=== PATIENT | male | born 1975 | race Caucasian/White ===

== ENCOUNTER → 2017-12-07 | Day surgery (SDC) | payer OTHER ==
[~2017-12-07] VITALS: Ht 177.8 cm; Wt 66.2 kg
[~2017-12-07] MED LIST: ARIP1TAB8 PO; ATROPINE SULFATE 0.1 MG/ML 5ML SYR IV PRN; CITA20TA4 PO; FENTANYL CITRATE INJ 50 MCG/1 ML 2 ML VIAL ONE; LIDOCAINE HCL 2% 2 ML VIAL (20MG/ML) ONE; LORAZEPAM 2 MG/ML 1 ML VIAL IV STA; NURSING VERBAL MED ORDER ONE; ONDANSETRON INJ 2 MG/ML 2 ML VIAL IV PRN; ONDANSETRON INJ 2 MG/ML 2 ML VIAL IV STA; ONDANSETRON INJ 2 MG/ML 2 ML VIAL ONE; PROPOFOL IV EMULSION 10 MG/ML 20 ML VIAL IV ONE; SUCCINYLCHOLINE CHLORIDE 20 MG/ML 10 ML VIAL IV ONE
[2017-12-07 18:15] VITALS: Ht 177.8 cm; Wt 66.2 kg
--- NOTE | 2017-12-07 18:56 | DIAGNOSTIC IMAGING REPORT ---
CHEST ONE VIEW PORTABLE CLINICAL HISTORY: cant swallow dysphagia COMPARISON STUDY: 12/11/2012 FINDINGS: The bones soft tissues and hemidiaphragms are normal. The cardiomediastinal silhouette is normal. The lungs are clear. The pulmonary vasculature is normal. IMPRESSION: Negative chest. The above report was generated using voice recognition software. It may contain grammatical, syntax or spelling errors. Electronically signed by: Louie High M.D. 12/07/2017 6:55 PM Dictated Date/Time: 12/07/2017 6:55 PM
[2017-12-07 19:05] LABS: BASO % 0.5 %; BASO ABS # 0.03 K/uL (0-0.2); EOS % 2.4 %; EOS ABS # 0.14 K/uL (0-0.5); HEMATOCRIT 42.9 % (42-52); HEMOGLOBIN 15.4 g/dL (14.0-18.0); IG# 0.02 K/uL (0.00-0.02); LYMPH % 37.9 %; MEAN CELL VOLUME 86.1 fL (80-100); MEAN CORPUSCULAR HEMOGLOBIN 30.9 pg (25-34); MEAN CORPUSCULAR HGB CONC 35.9 g/dl (32-36); MONO ABS # 0.58 K/uL (0.11-0.59); NEUT % 48.9 %; NEUT ABS # 2.84 K/uL (1.4-6.5); PLATELET COUNT 227 K/uL (130-400); RED CELL DISTRIBUTION WIDTH CV 12.9 % (11.5-14.5); RED CELL DISTRIBUTION WIDTH SD 40.8 fL (36.4-46.3); WHITE BLOOD COUNT 5.81 K/uL (4.8-10.8)
--- NOTE | 2017-12-07 19:10 | EMERGENCY ROOM VISIT NOTE ---
History Report prepared by Lea: Santiago Brantley Under the Supervision of: Dr. Td Cooley D.O. First contact with patient: 18:16 Chief Complaint: CHOKING Stated Complaint: CHOKING, FOOD BOLUS History of Present Illness The patient is a 42 year old male who presents to the Emergency Room with complaints of a piece of food stuck in his mouth that occurred just prior to arrival. The patient states that he was eating a pork chop and a piece got stuck in his throat. He notes that he has had this happen several times before because "I don't chew." He denies any chest pain or shortness of breath. No other exacerbating or remitting factors. Discussed with mom was at bedside and notes that the patient's was eating ribs and was swallowing when something got stuck. Following this he proceeded to try to dry heat. He notes that all of the pain is in the back of his throat and points to his upper neck. He was acting normally prior to this. Source of History: patient Onset: Just prior to arrival Position: throat Quality: other (Food stuck in throat) Timing: constant Associated Symptoms: No chest pain, No SOB Review of Systems See HPI for pertinent positives & negatives. A total of 10 systems reviewed and were otherwise negative. Past Medical & Surgical Medical Problems: (1) ANXIETY STATE NOS (2) CEREBRAL PALSY NOS (3) DEPRESSIVE DISORDER NEC Family History Family history of depression. Social History Alcohol Use: occasionally Marital Status: single Housing Status: lives alone Occupation Status: disabled Current/Historical Medications Scheduled Citalopram Hydrobromide (Citalopram Hydrobromide), 20 MG PO DAILY Allergies Coded Allergies: No Known Allergies (Unverified , 12/07/17) Physical Exam Vital Signs Date Time Temp Pulse Resp B/P (MAP) Pulse Ox O2 Delivery O2 Flow Rate FiO2 12/07/17 18:18 95 Room Air 95 12/07/17 18:15 36.7 82 26 131/83 95 Room Air Physical Exam GENERAL: Sitting up in bed, alert, dry heaving, not tolerating his own secretions, mild distress EYE EXAM: normal conjunctiva. OROPHARYNX: no exudate, no erythema, lips, buccal mucosa, and tongue normal and mucous membranes are moist NECK: supple, no nuchal rigidity, no adenopathy, non-tender, no stridor LUNGS: Clear to auscultation. Normal chest wall mechanics HEART: no murmurs, S1 normal and S2 normal ABDOMEN: abdomen soft, non-tender, normo-active bowel sounds, no masses, no rebound or guarding. BACK: Back is symmetrical on inspection and there is no deformity, no midline tenderness, no CVA tenderness. SKIN: no rashes and no bruising UPPER EXTREMITIES: upper extremities are grossly normal. LOWER EXTREMITIES: No pitting edema. NEURO EXAM: Alert answering questions appropriately, cranial nerves II-XII grossly intact, normal speech, no gross weakness of arms, no gross weakness of legs. Medical Decision & Procedures ER Provider Diagnostic Interpretation: Radiology results as stated below per my review and the radiologist's interpretation: CHEST ONE VIEW PORTABLE CLINICAL HISTORY: cant swallow dysphagia COMPARISON STUDY: 12/11/2012 FINDINGS: The bones soft tissues and hemidiaphragms are normal. The cardiomediastinal silhouette is normal. The lungs are clear. The pulmonary vasculature is normal. IMPRESSION: Negative chest. The above report was generated using voice recognition software. It may contain grammatical, syntax or spelling errors. Electronically signed by: Louie High M.D. 12/07/2017 6:55 PM Dictated Date/Time: 12/07/2017 6:55 PM Laboratory Results 12/07/17 18:41 Red Blood Count 4.98, Mean Corpuscular Volume 86.1, Mean Corpuscular Hemoglobin 30.9, Mean Corpuscular Hemoglobin Concent 35.9, Mean Platelet Volume 11.0, Neutrophils (%) (Auto) 48.9, Lymphocytes (%) (Auto) 37.9, Monocytes (%) (Auto) 10.0, Eosinophils (%) (Auto) 2.4, Basophils (%) (Auto) 0.5, Neutrophils # (Auto ) 2.84, Lymphocytes # (Auto) 2.20, Monocytes # (Auto) 0.58, Eosinophils # (Auto ) 0.14, Basophils # (Auto) 0.03 12/07/17 18:41 Test 12/07/17 18:41 White Blood Count 5.81 K/uL (4.8-10.8) Red Blood Count 4.98 M/uL (4.7-6.1) Hemoglobin 15.4 g/dL (14.0-18.0) Hematocrit 42.9 % (42-52) Mean Corpuscular Volume 86.1 fL (80-100) Mean Corpuscular Hemoglobin 30.9 pg (25-34) Mean Corpuscular Hemoglobin Concent 35.9 g/dl (32-36) Platelet Count 227 K/uL (130-400) Mean Platelet Volume 11.0 fL (7.4-10.4) Neutrophils (%) (Auto) 48.9 % Lymphocytes (%) (Auto) 37.9 % Monocytes (%) (Auto) 10.0 % Eosinophils (%) (Auto) 2.4 % Basophils (%) (Auto) 0.5 % Neutrophils # (Auto) 2.84 K/uL (1.4-6.5) Lymphocytes # (Auto) 2.20 K/uL (1.2-3.4) Monocytes # (Auto) 0.58 K/uL (0.11-0.59) Eosinophils # (Auto) 0.14 K/uL (0-0.5) Basophils # (Auto) 0.03 K/uL (0-0.2) RDW Standard Deviation 40.8 fL (36.4-46.3) RDW Coefficient of Variation 12.9 % (11.5-14.5) Immature Granulocyte % (Auto) 0.3 % Immature Granulocyte # (Auto) 0.02 K/uL (0.00-0.02) Anion Gap 3.0 mmol/L (3-11) Est Creatinine Clear Calc Drug Dose 81.2 ml/min Estimated GFR () 94.4 Estimated GFR (Non- 81.5 BUN/Creatinine Ratio 8.1 (10-20) Calcium Level 8.6 mg/dl (8.5-10.1) Total Bilirubin 0.4 mg/dl (0.2-1) Direct Bilirubin 0.1 mg/dl (0-0.2) Aspartate Amino Transf (AST/SGOT) 32 U/L (15-37) Alanine Aminotransferase (ALT/SGPT) 40 U/L (12-78) Alkaline Phosphatase 70 U/L (45-117) Total Protein 8.3 gm/dl (6.4-8.2) Albumin 3.9 gm/dl (3.4-5.0) Laboratory results per my review. Medications Administered Medications (Trade) Dose Ordered Sig/Fanny Route Start Time Stop Time Status Last Admin Dose Admin Ondansetron HCl (Zofran Inj) 4 mg NOW STAT IV 12/07/17 18:20 12/07/17 18:21 DC 12/07/17 18:39 4 MG Lorazepam (Ativan Inj) 1 mg NOW STAT IV 12/07/17 18:20 12/07/17 18:21 DC 12/07/17 18:39 1 MG Lorazepam (Ativan Inj) 1 mg NOW STAT IV 12/07/17 20:26 12/07/17 20:27 DC 12/07/17 20:50 1 MG ED Course ED COURSE: Vital signs were reviewed and showed normal vitals. The patients medical record was reviewed The above diagnostic studies were performed and reviewed. ED treatments and interventions as stated above. 1817: The patient was evaluated in room B4B. A complete history and physical examination was performed. 1819: Ordered Ativan 1 mg IV, Zofran 4 mg IV. 1856: I checked on the patient he is still dry heaving. 1858: I paged for GI at this time. 1913: I discussed the case with Dr. Ramirez - Gastrointestinal. He will come to the department to see the patient. 1944: Patient still dry heaving and given another dose of Ativan. 2035: Dry heaving has improved slightly recommended an additional dose of Ativan the patient's mother declined as she wants him to be evaluated by GI first. 2037 Rediscussed case with GI. He is still unsure when he will be in and unable to give an ETA. 2051 Re-updated mom. agreeable to more ativan and parent extremely agitated. Notified charge nurse. Medical Decision Differential diagnoses includes but is not limited to gastritis, peptic ulcer disease, GERD, gallbladder disease, pancreatitis, small bowel obstruction, acute coronary syndrome, pericarditis, ischemic bowel, irritable bowel disease, irritable bowel syndrome, appendicitis, diverticulitis, malignancy, hernia, urinary tract infection, torsion, perforation, trauma, infectious. Patient is a 42-year-old male who presents the ER following eating ribs without the bone and feeling a piece of pork get stuck in his throat. He notes he has had this several times before in the past but this has always resolved on its own. Upon review of records did happen several times back in 2004. He has never seen GI. Upon presentation he was persistently dry heaving not tolerating secretions. He was given multiple doses of Ativan with some mild improvement. I did consult GI around shortly after 7PM due to the persistent vomiting and how uncomfortable he is. Patient was given fluids. Chest x-ray was unremarkable. CBC and BMP were benign. I do favor that this gentleman likely has an esophageal foreign body. I did recommend a third dose of Ativan but the patient's mother declined and was very agitated as he still has not been seen by GI and he has been here for 2 hours and 20 minutes. She noted at that time that he was not being treated secondary to his insurance. She continued to state that this is the worst hospital in the world and proceeded to curse. She notes she will contact administration in regards to this and has posted online. I informed her that he was paged and I did discuss with him but we are still awaiting his arrival after two conversations. He was re-paged at [phone]. Stressed the importance that he needs to evaluate this patient due to the agitation of the mother and the persistent vomiting. He will likely need to go to the endo suite for endoscopy. GI at bedside at 9:05PM. D/w Dr. Schuler who is aware that the Pt is going to Endo and GI at bedside. Impression Primary Impression: Food impaction of esophagus Scribe Attestation The scribe's documentation has been prepared under my direction and personally reviewed by me in its entirety. I confirm that the note above accurately reflects all work, treatment, procedures, and medical decision making performed by me. Departure Information Dispostion Still a Patient (Patient will need to have an endoscopy) Referrals Monserrat Dia C.R.N.P. (PCP) Patient Instructions My [facility] Problem Qualifiers Primary Impression: Food impaction of esophagus Encounter type: initial encounter Qualified Codes: T18.128A - Food in esophagus causing other injury, initial encounter
[2017-12-07 19:21] LABS: ALBUMIN 3.9 gm/dl (3.4-5.0); CALCIUM 8.6 mg/dl (8.5-10.1); CREATININE 1.11 mg/dl (0.60-1.40); POTASSIUM 3.6 mmol/L (3.5-5.1)
[2017-12-07 19:24] LABS: TOTAL PROTEIN 8.3 gm/dl (6.4-8.2)
[2017-12-07 21:26] VITALS: O2SAT 97
--- NOTE | 2017-12-07 21:42 | Endo History and Physical ---
History & Physical Date of Service: Dec 07, 2017. Chief Complaint: Food bolus Referring Physician: History of Present Illness 42 yo M with prior h/o dysphagia now with sensation of food lodged while eating ribs at 5 pm. He has been gagging since then. He received Ativan by ER physician. Social History Smoking Status: Never Smoker Allergies Coded Allergies: No Known Allergies (Unverified , 12/07/17) Current Medications Reported Home Medications Medications Dose Route/Sig Max Daily Dose Days Date Category Citalopram Hydrobromide 20 Mg Tab 20 Mg PO DAILY 12/12/12 Reported Vital Signs Weight (Kilograms): 66.200 Height (Feet): 5 Height (Inches): 10.00 Date Time Temp Pulse Resp B/P (MAP) Pulse Ox O2 Delivery O2 Flow Rate FiO2 12/07/17 21:26 86 18 136/80 97 12/07/17 18:18 95 Room Air 95 12/07/17 18:15 36.7 82 26 131/83 95 Room Air Physical Exam General Appearance: + moderate distress (He appears uncomfortable and disoriented. He does not answer my questions, although he does follow simple commands.) Respiratory/Chest: Respiratory effort: no dyspnea Auscultation: breath sounds normal Cardiovascular: Heart Auscultation: RRR Abdomen: Inspection & Palpation: soft Assessment and Plan Food bolus - EGD
--- NOTE | 2017-12-07 22:18 | GI REPORT ---
Patient Name: Paulie Cooper Procedure Date: 12/07/2017 9:43 PM Date of : 1975 Admit Type: Emergency Department Age: 42 Gender: Male Attending MD: Kody Morrison MD Procedure: Upper GI endoscopy Providers: Kody Morrison MD Referring MD: Kody Morrison MD Indications: Foreign body in the esophagus Medicines: See the Anesthesia note for documentation of the administered medications Complications: No immediate complications. Estimated Blood Loss: Estimated blood loss: none. Procedure: Pre-Anesthesia Assessment: - ASA Grade Assessment: II - A patient with mild systemic disease. After obtaining informed consent, the endoscope was passed under direct vision. Throughout the procedure, the patient's blood pressure, pulse, and oxygen saturations were monitored continuously. The Scope was introduced through the mouth, and advanced to the second part of duodenum. The upper GI endoscopy was accomplished without difficulty. The patient tolerated the procedure well. Findings: There was mild erythema in the upper esophagus. There were multiple rings throughout the esophagus. There was a mild ring at the GE junction at 40 cm. There was no food in the esophagus There was food in the stomach. There was an antral erosion. The stomach was otherwise normal. The duodenum was normal. Impression: - Food bolus, spontaneously passed. Exam suspicious for eosinophilic esophagitis. Recommendation: - Discharge patient to home. - Soft mech diet. - BID PPI. EGD after 8 weeks of PPI therapy to biopsy for Eoe, and possible dilation; schedule sooner if pt is symptomatic. Kody Morrison M.D. Kody Morrison MD 12/07/2017 10:18:06 PM This report has been signed electronically. Note Initiated On: 12/07/2017 9:43 PM Number of Addenda: 0 I attest to the content of the Intraoperative Record and orders documented therein, exceptions below {[id number]}
--- NOTE | 2017-12-07 22:21 | Discharge Instructions ---
Endoscopy Patient Instructions Date / Procedure(s) Performed Dec 07, 2017. EGD Allergy Information Coded Allergies: No Known Allergies (Unverified , 12/07/17) Discharge Date / Findings Dec 07, 2017. No food in esophagus - food had spontaneously passed. Mild rings in body of esophagus and at GE junction. Medication Instructions Take prilosec twice daily. Provider Instructions Activity Restrictions - No exercising or heavy lifting for 24 hours. - Do not drink alcohol the day of the procedure. - Do not drive a car or operate machinery until the day after the procedure. - Do not make any important decisions or sign important papers in 24 hours after the procedure. Following Day: - Return to full activity which may include returning to work/school. Diet Start your diet with liquids and light foods (jello, soup, juice, toast). Then advance to soft mechanical diet. Treatment For Common After Affects For mild abdominal pain, bloating, or excessive gas: - Rest - Eat lightly - Lie on right side Follow-Up Information Repeat endoscopyp in 8 weeks to look for evidence of allergic inflammation in the esophagus. Please call for sooner appointment if he has persistent difficulty swallowing. Anesthesia Information What You Should Know You have had a procedure that required some medicine to reduce anxiety and discomfort. This treatment is called moderate sedation. After receiving the treatment, you may be sleepy, but you will be able to breathe on your own. The effects of the treatment may last for several hours. Follow these instructions along with Activity/Diet recommendations noted above: * Do NOT do anything where dizziness or clumsiness would be dangerous. * Rest quietly at home today, then you can be up and about tomorrow. * Have a responsible person stay with you the rest of today. * You may have had an I.V. today. If so, you may take the dressing off later today. Recommendations Call your doctor if: * Trouble breathing * Continuous vomiting for more than 24 hours * Temperature above 101 degrees * Severe abdominal pain or bloating * Pain not relieved by pain medicine ordered * There is increased drainage or redness from any incision * A large amount of rectal bleeding greater than 2-3 tablespoons. (If you had a polyp/s removed or have hemorrhoids, a small amount of blood - from the rectum is to be expected.) * You have any unanswered questions or concerns. IN THE EVENT OF A SERIOUS EMERGENCY, GO TO THE NEAREST EMERGENCY ROOM Your discharge instructions were prepared by provider Kody Shukla. Patient Instructions Signature Page Paulie Cooper Patient (or Guardian) Signature/Date: I have read and understand the instructions given to me by my caregivers. Caregiver/RN/Doctor Signature/Date: The above-named patient and/or guardian has received patient instructions on this date. + Original Patient Signature Page (only) stays with chart. Please make copy for patient.
[2017-12-07 22:50] VITALS: BP 95/56; PULSE 63; TEMP 36.7; O2SAT 92
--- NOTE | 2017-12-07 22:54 | Anesthesiology Progress Note ---
Anesthesia Post Op Note Date & Time Dec 07, 2017 at 22:54 Vital Signs Pain Intensity: 0 Vital Signs Past 12 Hours Date Time Temp Pulse Resp B/P (MAP) Pulse Ox O2 Delivery O2 Flow Rate FiO2 12/07/17 22:45 75 20 95/56 92 Room Air 12/07/17 22:35 62 20 95/57 91 Room Air 12/07/17 22:26 36.4 63 20 109/61 92 Room Air 12/07/17 21:26 86 18 136/80 97 12/07/17 18:18 95 Room Air 95 12/07/17 18:15 36.7 82 26 131/83 95 Room Air Notes Mental Status: alert / awake / arousable, participated in evaluation Pt Amnestic to Procedure: Yes Nausea / Vomiting: adequately controlled Pain: adequately controlled Airway Patency, RR, SpO2: stable & adequate BP & HR: stable & adequate Hydration State: stable & adequate Anesthetic Complications: no major complications apparent
[2017-12-07 23:10] VITALS: BP 114/55; PULSE 63; TEMP 36.6; O2SAT 92
[2017-12-07 23:35] VITALS: BP 95/56; PULSE 86; TEMP 36.6; O2SAT 94
== END | disposition home or self-care (01) ==
LOC: EDUNIT# 18:02 → EDBD 18:12 → C.EDB 18:13 → C.ACU 21:00 → C.EDB 21:28
PROVIDERS: ATTEND Internal Medicine Gastroenterology
DX: T18.128A Food in esophagus causing other injury, initial encounter (principal); X58.XXXA Exposure to other specified factors, initial encounter; F41.9 Anxiety disorder, unspecified; G80.9 Cerebral palsy, unspecified; F32.9 Major depressive disorder, single episode, unspecified; F17.220 Nicotine dependence, chewing tobacco, uncomplicated; Z81.8 Family history of other mental and behavioral disorders

== ENCOUNTER → 2018-03-13 | Outpatient (CLI) | payer OTHER ==
[~2018-03-13] MED LIST changes: -ARIP1TAB8 PO; +ASPEC325 PO; -ATROPINE SULFATE 0.1 MG/ML 5ML SYR IV PRN; +DIPH25CA65 PO; -FENTANYL CITRATE INJ 50 MCG/1 ML 2 ML VIAL ONE; +HYDR-5688 PO; -LIDOCAINE HCL 2% 2 ML VIAL (20MG/ML) ONE; -LORAZEPAM 2 MG/ML 1 ML VIAL IV STA; +LVNIS30 SQ; -NURSING VERBAL MED ORDER ONE; -ONDANSETRON INJ 2 MG/ML 2 ML VIAL IV PRN; -ONDANSETRON INJ 2 MG/ML 2 ML VIAL IV STA; -ONDANSETRON INJ 2 MG/ML 2 ML VIAL ONE; +PRLSR20 PO; -PROPOFOL IV EMULSION 10 MG/ML 20 ML VIAL IV ONE; -SUCCINYLCHOLINE CHLORIDE 20 MG/ML 10 ML VIAL IV ONE
== END | disposition home or self-care (01) ==
LOC: C.RDSM 11:11
PROVIDERS: ATTEND Orthopaedic Surgery Sports Medicine
DX: Z96.7 Presence of other bone and tendon implants (principal)

== ENCOUNTER 2023-06-19 18:53 | Inpatient (IN) ==
[2023-06-19] MEDS ORDERED: MoRPHine SULFATE 4 MG/ML 1 ML CARP\\VIAL IV STA ×2 (19:38→21:59)
[2023-06-19 19:56] LABS: Basophils # (auto) 0.08 K/uL (0.00-0.20); Basophils % (auto) 0.5 %; Eosinophils # (auto) 0.11 K/uL (0.00-0.50); Eosinophils % (auto) 0.7 %; Hematocrit (blood only) 42.7 % (42.0-52.0); Hemoglobin 14.5 g/dl (14.0-18.0); Immature Granulocytes # (auto) 0.08 K/uL (0.01-0.20); Immature Granulocytes % (auto) 0.5 %; Lymphocytes # (auto) 1.02 K/uL (1.20-3.40); Lymphocytes % (auto) 6.9 %; Mean Corpuscular Hemoglobin 30.1 pg (25.0-34.0); Mean Corpuscular Volume 88.6 fL (80.0-100.0); Mean Platelet Volume 11.2 fL (9.4-12.4); Monocytes # (auto) 0.73 K/uL (0.11-0.59); Monocytes % (auto) 4.9 %; Neutrophils # (auto) 12.84 K/uL (1.40-6.50); Neutrophils % (auto) 86.5 %; Platelet Count 247 K/uL (130-400); RDW Coefficient of Variation 12.1 % (11.5-14.5); RDW Standard Deviation 39.6 fL (36.4-46.3); Red Blood Count 4.82 M/uL (4.70-6.10); White Blood Count 14.86 K/ul (4.8-10.8)
[2023-06-19 20:11] LABS: Alanine Aminotransferase 16 U/L (7-52); Albumin Globulin Ratio 1.4 (0.9-2); Albumin Level 4.5 gm/dl (3.4-5.0); Alkaline Phosphatase 86 U/L (34-104); Anion Gap 7 (3-11); Aspartate Aminotransferase 16 U/L (13-39); BUN Creatinine Ratio 11.9 (10-20); Bilirubin,Total 0.3 mg/dl (0.2-1.0); Blood Urea Nitrogen 10 mg/dl (6-23); Calcium 9.1 mg/dl (8.6-10.3); Carbon Dioxide 27 mmol/L (21-32); Chloride 102 mmol/L (98-107); Est GFR (Non-African American) 103.5 ml/min; Globulin 3.2 gm/dl (2.5-4.0); Glucose 117 mg/dl (70-99(Fasting)); Potassium 3.7 mmol/L (3.5-5.1); Sodium 136 mmol/L (136-145); Total Protein 7.7 gm/dl (6.0-8.3)
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
[2023-06-19] MEDS ORDERED: OPTIRAY 320 100ml IV ONE (20:35)
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
--- NOTE | 2023-06-19 21:25 | CT Scan Report ---
Exam(s): CT C SPINE EXAM: CT Cervical Spine Without Intravenous Contrast CLINICAL HISTORY: Reason for exam: Trauma. TECHNIQUE: Axial computed tomography images of the cervical spine without intravenous contrast. CTDI is 24.47 mGy and DLP is 529.43 mGy-cm. Automated exposure control was utilized for the study. A dose lowering technique was utilized adhering to the principles of ALARA. COMPARISON: None. FINDINGS: Vertebrae: Degenerative arthrosis at anterior C1-C2 articulation, otherwise normal odontoid process. Multilevel endplate spondylosis with narrowing of disc height consistent with disc degenerative disease. Reversal of the cervical lordosis which may be due to muscular spasm, positioning or degenerative disease. There is mild widening posterior displaces at C2-C3 and C3-C4, likely due to positioning. Cannot entirely exclude ligamentous injury. No acute fracture. Discs/spinal canal/neural foramina: Multilevel bilateral apophyseal hypertrophy contributing to variable degrees of neuroforaminal encroachment. No central canal stenosis. Soft tissues: Unremarkable. IMPRESSION: 1. No acute fracture or subluxation. 2. Degenerative disease as described. 3. Mild widening of the posterior displaces at C2-C3 and C3-C4 which most likely due to positioning, cannot entirely exclude ligamentous injury depending on the type of trauma. If this represents a clinical concern, recommend follow-up with MRI of the neck. Electronically signed by: Tesha Lieberman MD 06/19/23 21:25 PM
--- NOTE | 2023-06-19 21:31 | CT Scan Report ---
Exam(s): CT CHEST With Contrast IV Amt: 93ML OPTIRAY 320 EXAM: CT Chest With Intravenous Contrast CLINICAL HISTORY: Reason for exam: Trauma. TECHNIQUE: Axial computed tomography images of the chest with intravenous contrast. CTDI is 22.97 mGy and DLP is 649.84 mGy-cm. Automated exposure control was utilized for the study. A dose lowering technique was utilized adhering to the principles of ALARA. CONTRAST: Patient received 93ML OPTIRAY 320 of IV contrast COMPARISON: 03/30/2021. FINDINGS: Lungs: The lungs are underexpanded with vascular crowding. There is mild bilateral lower lobe atelectasis. Pleural space: Unremarkable. No pleural effusion or pneumothorax. Heart: Unremarkable. No cardiomegaly. No significant pericardial effusion. No significant coronary artery calcifications. Mediastinum: Minimal hiatal hernia. Bones/joints: Posterior fusion from lower thoracic spine to the lumbar spine. Abdominal structures are described in detail in the accompanying CT of the abdomen and pelvis report. No acute fracture. No dislocation. Soft tissues: Unremarkable. Vasculature: Unremarkable. Normal aorta aneurysm or dissection. Lymph nodes: Unremarkable. No enlarged lymph nodes. IMPRESSION: 1. Mild bilateral lower lobe atelectasis, otherwise no acute pulmonary disease. 2. No pleural effusion or pneumothorax. Electronically signed by: Tesha Lieberman MD 06/19/23 21:30 PM
--- NOTE | 2023-06-19 21:37 | CT Scan Report ---
Exam(s): CT ABDOMEN + PELVIS With Contrast IV Amt: 93ML OPTIRAY 320 EXAM: CT Abdomen and Pelvis With Intravenous Contrast CLINICAL HISTORY: Reason for exam: Trauma. TECHNIQUE: Axial computed tomography images of the abdomen and pelvis with intravenous contrast. CTDI is 23.57 mGy and DLP is 1291.35 mGy-cm. Automated exposure control was utilized for the study. A dose lowering technique was utilized adhering to the principles of ALARA. CONTRAST: Patient received 93ML OPTIRAY 320 of IV contrast COMPARISON: 03/24/2021. FINDINGS: Lung bases: Mild bilateral lower lobe atelectasis. Heart: Unremarkable. No significant pericardial effusion. Normal cardiac size. Mediastinum: Minimal hiatal hernia. ABDOMEN: Liver: Unremarkable. No mass. Gallbladder and bile ducts: Unremarkable. No calcified stones. No ductal dilation. Pancreas: Unremarkable. No mass. No ductal dilation. Spleen: Unremarkable. No splenomegaly. Adrenals: Unremarkable. No mass. Kidneys and ureters: Unremarkable. No solid mass. No hydronephrosis. Stomach and bowel: Unremarkable. No obstruction. No mucosal thickening. PELVIS: Appendix: Normal appendix. Bladder: Urinary bladder is incompletely distended. Reproductive: Unremarkable as visualized. ABDOMEN and PELVIS: Intraperitoneal space: Unremarkable. No free air. No significant fluid collection. Bones/joints: Posterior fusion from T11-L2. No acute fracture. No dislocation. Soft tissues: Unremarkable. Vasculature: Unremarkable. No abdominal aortic aneurysm. Lymph nodes: Unremarkable. No enlarged lymph nodes. IMPRESSION: No evidence of visceral or intra-abdominal injury. Electronically signed by: Tesha Lieberman MD 06/19/23 21:36 PM
--- NOTE | 2023-06-19 22:15 | Emergency Department Note ---
ED Visit Note I was consulted by the Advanced Practice Provider. I saw the patient personally and performed a substantive portion of the visit. This includes aspects of the HPI, MDM, diagnostic interpretations, and disposition/plan. Laboratory workup interpreted by myself showed leukocytosis (WBC 14.86) with left shift; stable electrolytes. Trauma CT imaging negative for acute pathology. Xray of left tib-fib showed proximal spiral fibular fracture and distal tibial fracture. Patient's leg placed into splint. Will be admitted to hospitalist service. .
[2023-06-20] MEDS ORDERED: HYDROmorphone INJ 0.5 MG/0.5 ML SYR IV PRN ×2 (00:03→01:30)
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
[2023-06-20] MEDS ORDERED: ONDANSETRON INJ 2 MG/ML 2 ML VIAL IV PRN (01:30)
[2023-06-20] MEDS: NSS + 20MEQ KCL 20 MEQ/1,000 ML BAG IV SCH ×2 (03:37→15:42)
[2023-06-20] MEDS: HYDROmorphone INJ 0.5 MG/0.5 ML SYR IV PRN ×4 (06:24→19:16)
[2023-06-20 07:23] LABS: Basophils # (auto) 0.06 K/uL (0.00-0.20); Basophils % (auto) 0.9 %; Eosinophils # (auto) 0.13 K/uL (0.00-0.50); Eosinophils % (auto) 1.9 %; Hematocrit (blood only) 38.3 % (42.0-52.0); Immature Granulocytes # (auto) 0.02 K/uL (0.01-0.20); Immature Granulocytes % (auto) 0.3 %; Lymphocytes # (auto) 1.35 K/uL (1.20-3.40); Lymphocytes % (auto) 19.2 %; Mean Corpuscular Hemoglobin 29.9 pg (25.0-34.0); Mean Corpuscular Hgb Conc 33.9 g/dL (32.0-36.0); Mean Platelet Volume 10.9 fL (9.4-12.4); Monocytes # (auto) 0.71 K/uL (0.11-0.59); Monocytes % (auto) 10.1 %; Neutrophils # (auto) 4.75 K/uL (1.40-6.50); Neutrophils % (auto) 67.6 %; Platelet Count 217 K/uL (130-400); RDW Coefficient of Variation 12.2 % (11.5-14.5); RDW Standard Deviation 39.6 fL (36.4-46.3); Red Blood Count 4.35 M/uL (4.70-6.10); White Blood Count 7.02 K/ul (4.8-10.8)
[2023-06-20 07:56] LABS: Anion Gap 5 (3-11); BUN Creatinine Ratio 11.4 (10-20); Blood Urea Nitrogen 9 mg/dl (6-23); Calcium 8.5 mg/dl (8.6-10.3); Carbon Dioxide 27 mmol/L (21-32); Chloride 104 mmol/L (98-107); Est GFR (African American) 123.1 ml/min; Est GFR (Non-African American) 106.2 ml/min; Glucose 111 mg/dl (70-99(Fasting)); Magnesium 1.8 mg/dl (1.7-2.4); Phosphorus 3.3 mg/dl (2.5-4.9); Sodium 136 mmol/L (136-145)
--- NOTE | 2023-06-20 08:01 | XRay Report ---
LEFT TIBIA AND FIBULA 2 VIEWS CLINICAL HISTORY: Left leg injury. FINDINGS: AP and crosstable lateral views of the left tibia and fibula are correlated with radiograph s of the left knee dated 09/20/2021 and the left ankle dated 03/26/2020. The skeletal structures are wel l-mineralized. There is a mildly displaced spiral fracture of the proximal fibula. The fragments are offset by up to 3.5 mm. There is also a mildly displaced spiral fracture of the distal tibial metadia physis. Fragments are offset by up to 5.5 mm. Soft tissue edema overlies both fracture sites. There i s chronic posttraumatic deformity of the distal tibia and fibula. 2 cortical lag screws transfix the medial malleolus, and there is a buttress plate along the lateral cortex of the lateral malleolus. Th e knee and ankle joints are grossly maintained. IMPRESSION: Acute fractures of the proximal fibula and the distal tibia as above. Electronically signed by: Berny Delcid M.D. 06/20/2023 8:00 AM
[2023-06-20] MEDS: CITALOPRAM 20 MG TAB PO SCH (09:24)
[2023-06-20] MEDS: PANTOprazole 40 MG TAB PO SCH (09:25)
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
[2023-06-20] MEDS ORDERED: Patient's HEIGHT &/or WEIGHT Needed SCH (10:30)
[2023-06-20] MEDS: ACETAMINOPHEN 325 MG TAB PO PRN (12:59)
[2023-06-20] MEDS ORDERED: FOLIC ACID 1 MG in SYRINGE 9.8 ML IV STA (19:07)
[2023-06-20] MEDS ORDERED: THIAMINE HCL 200 MG in SODIUM CHLORIDE 0.9% 50 ML IV STA (19:07)
[2023-06-20] MEDS ORDERED: LORazepam 1 MG TAB PO PRN (19:08)
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
[2023-06-20] MEDS: NICOTINE 7 MG/24 HR TDSY TD SCH (20:41)
[2023-06-20] MEDS ORDERED: OLANZapine 10 MG/2.1 ML SDV IM STA (21:11)
[2023-06-21] MEDS: NSS + 20MEQ KCL 20 MEQ/1,000 ML BAG IV SCH ×3 (01:19→20:07)
[2023-06-21] MEDS ORDERED: ACETAMINOPHEN 1,000 MG/100 ML VIAL IV STA (05:18)
[2023-06-21] MEDS ORDERED: ceFAZolin 2000MG 2,000 MG/15 ML SYR IV SCH (06:00)
[2023-06-21] MEDS ORDERED: ROPIVACAINE 0.5% 5 MG/ML 30 ML VIAL ONE (06:22)
[2023-06-21] MEDS ORDERED: HYDROmorphone INJ 2 MG/ML SYR/VIAL IV PRN (06:29)
[2023-06-21] MEDS ORDERED: ONDANSETRON INJ 2 MG/ML 2 ML VIAL IV PRN ×2 (06:29→10:30)
[2023-06-21] MEDS ORDERED: fentaNYL citrate PF 100 MCG/2 ML VIAL IV PRN (06:29)
[2023-06-21] MEDS ORDERED: ATROPINE SULFATE 0.1 MG/ML 10ML SYR IV PRN (06:29)
[2023-06-21] MEDS ORDERED: ePHEDrine sulfate 50 MG/ML AMP IV PRN (06:29)
[2023-06-21] MEDS ORDERED: ROCURONIUM BROMIDE 10 MG/ML 5 ML VIAL IV ONE (06:34)
[2023-06-21] MEDS ORDERED: fentaNYL citrate PF 100 MCG/2 ML VIAL ONE ×2 (06:34→07:10)
[2023-06-21] MEDS ORDERED: MIDAZOLAM HCL 1 MG/ML 2ML VIAL ONE (06:34)
[2023-06-21] MEDS ORDERED: PROPOFOL IV EMULSION 10 MG/ML 20 ML VIAL IV ONE (06:34)
[2023-06-21] MEDS ORDERED: LIDOCAINE 1%/EPINEPHRINE 1:100,000 20 ML VIAL ONE (06:37)
[2023-06-21] MEDS ORDERED: BUPIVACAINE 0.5 % 5 MG/1 ML MPF 30ML VIAL ONE (06:37)
--- NOTE | 2023-06-21 06:41 | Orthopedic Progress Note ---
Date of Service June 21, 2023 Assessment & Plan (1) Closed fracture of left tibia and fibula: Plan: IMPRESSION: Left distal Tibia fracture and left proximal fibula fracture, initial visit, ED PLAN: Discussed options of surgical versus conservative treatment as well as the risks and benefits. Patient wished to proceed with surgery and the informed consent was signed for ORIF Left Tibia, yesterday. NPO after midnight with IVF. Ancef on-call to OR. LUCI & foot pumps RLE NWB LLE Plan OR later today. Admission and Anticipated Discharge Date Admission Date: June 20, 2023 Subjective Patient ready for surgery Physical Exam Physical Exam: LLE: Splint in place. Sensation to light touch intact. Able to wiggle toes. BCR < 2 sec. Results & Data Vital Signs (Past 12 Hours) Vital Signs Temp Pulse Resp BP Pulse Ox O2 Del Method O2 Flow Rate 06/21/23 06:03 37.2 C 52 L 18 110/73 100 Nasal Cannula 2 06/21/23 04:23 37.8 C H 62 18 112/69 97 Nasal Cannula 2 06/21/23 00:00 36.5 C 78 18 139/81 89 L Room Air 06/20/23 22:28 36.9 C 06/20/23 22:23 73 18 125/74 88 L Room Air 06/20/23 20:53 36.4 C L 77 20 133/66 93 Room Air 06/20/23 20:00 36.6 C 66 20 112/65 90 Room Air 06/20/23 19:20 Room Air 06/20/23 19:14 36.5 C 63 20 128/78 92 Room Air Diagnostic Findings Laboratory Results WBC 7.02 K/ul (4.8-10.8) 06/20/23 06:54 RBC 4.35 M/uL (4.70-6.10) L 06/20/23 06:54 Hgb 13.0 g/dl (14.0-18.0) L 06/20/23 06:54 Hct 38.3 % (42.0-52.0) L 06/20/23 06:54 MCV 88.0 fL (80.0-100.0) 06/20/23 06:54 MCH 29.9 pg (25.0-34.0) 06/20/23 06:54 MCHC 33.9 g/dL (32.0-36.0) 06/20/23 06:54 RDW Std Deviation 39.6 fL (36.4-46.3) 06/20/23 06:54 RDW Coeff of Belén 12.2 % (11.5-14.5) 06/20/23 06:54 Plt Count 217 K/uL (130-400) 06/20/23 06:54 MPV 10.9 fL (9.4-12.4) 06/20/23 06:54 Immature Gran % (Auto) 0.3 % 06/20/23 06:54 Neut % (Auto) 67.6 % 06/20/23 06:54 Lymph % (Auto) 19.2 % 06/20/23 06:54 Woods % (Auto) 10.1 % 06/20/23 06:54 Eos % (Auto) 1.9 % 06/20/23 06:54 Baso % (Auto) 0.9 % 06/20/23 06:54 Neut # (Auto) 4.75 K/uL (1.40-6.50) 06/20/23 06:54 Lymph # (Auto) 1.35 K/uL (1.20-3.40) 06/20/23 06:54 Woods # (Auto) 0.71 K/uL (0.11-0.59) H 06/20/23 06:54 Eos # (Auto) 0.13 K/uL (0.00-0.50) 06/20/23 06:54 Baso # (Auto) 0.06 K/uL (0.00-0.20) 06/20/23 06:54 Immature Gran # (Auto) 0.02 K/uL (0.01-0.20) 06/20/23 06:54 Sodium 136 mmol/L (136-145) 06/20/23 06:54 Potassium 4.0 mmol/L (3.5-5.1) 06/20/23 06:54 Chloride 104 mmol/L (98-107) 06/20/23 06:54 Carbon Dioxide 27 mmol/L (21-32) 06/20/23 06:54 Anion Gap 5 (3-11) 06/20/23 06:54 BUN 9 mg/dl (6-23) 06/20/23 06:54 Creatinine 0.79 mg/dl (0.6-1.4) 06/20/23 06:54 Est Cr Clr Drug Dosing Not Reportable 06/20/23 06:54 Est GFR ( Amer) 123.1 ml/min 06/20/23 06:54 Est GFR (Non-Af Amer) 106.2 ml/min 06/20/23 06:54 BUN/Creatinine Ratio 11.4 (10-20) 06/20/23 06:54 Glucose 111 mg/dl (70-99(Fasting)) H 06/20/23 06:54 Calcium 8.5 mg/dl (8.6-10.3) L 06/20/23 06:54 Phosphorus 3.3 mg/dl (2.5-4.9) 06/20/23 06:54 Magnesium 1.8 mg/dl (1.7-2.4) 06/20/23 06:54 Total Bilirubin 0.3 mg/dl (0.2-1.0) 06/19/23 19:30 AST 16 U/L (13-39) 06/19/23 19:30 ALT 16 U/L (7-52) 06/19/23 19:30 Alkaline Phosphatase 86 U/L (34-104) 06/19/23 19:30 Total Protein 7.7 gm/dl (6.0-8.3) 06/19/23 19:30 Albumin 4.0 gm/dl (3.4-5.0) 06/20/23 06:54 Globulin 3.2 gm/dl (2.5-4.0) 06/19/23 19:30 Albumin/Globulin Ratio 1.4 (0.9-2) 06/19/23 19:30 Impressions Tibia/Fibula X-Ray 06/19/23 19:34 LEFT TIBIA AND FIBULA 2 VIEWS CLINICAL HISTORY: Left leg injury. FINDINGS: AP and crosstable lateral views of the left tibia and fibula are correlated with radiographs of the left knee dated 09/20/2021 and the left ankle dated 03/26/2020. The skeletal structures are well-mineralized. There is a mildly displaced spiral fracture of the proximal fibula. The fragments are offset by up to 3.5 mm. There is also a mildly displaced spiral fracture of the distal tibial metadiaphysis. Fragments are offset by up to 5.5 mm. Soft tissue edema overlies both fracture sites. There is chronic posttraumatic deformity of the distal tibia and fibula. 2 cortical lag screws transfix the medial malleolus, and there is a buttress plate along the lateral cortex of the lateral malleolus. The knee and ankle joints are grossly maintained. IMPRESSION: Acute fractures of the proximal fibula and the distal tibia as above. Electronically signed by: Berny Delcid M.D. 06/20/2023 8:00 AM Abdomen/Pelvis CT 06/19/23 19:36 Exam(s): CT ABDOMEN + PELVIS With Contrast IV Amt: 93ML OPTIRAY 320 EXAM: CT Abdomen and Pelvis With Intravenous Contrast CLINICAL HISTORY: Reason for exam: Trauma. TECHNIQUE: Axial computed tomography images of the abdomen and pelvis with intravenous contrast. CTDI is 23.57 mGy and DLP is 1291.35 mGy-cm. Automated exposure control was utilized for the study. A dose lowering technique was utilized adhering to the principles of ALARA. CONTRAST: Patient received 93ML OPTIRAY 320 of IV contrast COMPARISON: 03/24/2021. FINDINGS: Lung bases: Mild bilateral lower lobe atelectasis. Heart: Unremarkable. No significant pericardial effusion. Normal cardiac size. Mediastinum: Minimal hiatal hernia. ABDOMEN: Liver: Unremarkable. No mass. Gallbladder and bile ducts: Unremarkable. No calcified stones. No ductal dilation. Pancreas: Unremarkable. No mass. No ductal dilation. Spleen: Unremarkable. No splenomegaly. Adrenals: Unremarkable. No mass. Kidneys and ureters: Unremarkable. No solid mass. No hydronephrosis. Stomach and bowel: Unremarkable. No obstruction. No mucosal thickening. PELVIS: Appendix: Normal appendix. Bladder: Urinary bladder is incompletely distended. Reproductive: Unremarkable as visualized. ABDOMEN and PELVIS: Intraperitoneal space: Unremarkable. No free air. No significant fluid collection. Bones/joints: Posterior fusion from T11-L2. No acute fracture. No dislocation. Soft tissues: Unremarkable. Vasculature: Unremarkable. No abdominal aortic aneurysm. Lymph nodes: Unremarkable. No enlarged lymph nodes. IMPRESSION: No evidence of visceral or intra-abdominal injury. Electronically signed by: Tesha Lieberman MD 06/19/23 21:[address] 06/19/23 19:36 Exam(s): CT C SPINE EXAM: CT Cervical Spine Without Intravenous Contrast CLINICAL HISTORY: Reason for exam: Trauma. TECHNIQUE: Axial computed tomography images of the cervical spine without intravenous contrast. CTDI is 24.47 mGy and DLP is 529.43 mGy-cm. Automated exposure control was utilized for the study. A dose lowering technique was utilized adhering to the principles of ALARA. COMPARISON: None. FINDINGS: Vertebrae: Degenerative arthrosis at anterior C1-C2 articulation, otherwise normal odontoid process. Multilevel endplate spondylosis with narrowing of disc height consistent with disc degenerative disease. Reversal of the cervical lordosis which may be due to muscular spasm, positioning or degenerative disease. There is mild widening posterior displaces at C2-C3 and C3-C4, likely due to positioning. Cannot entirely exclude ligamentous injury. No acute fracture. Discs/spinal canal/neural foramina: Multilevel bilateral apophyseal hypertrophy contributing to variable degrees of neuroforaminal encroachment. No central canal stenosis. Soft tissues: Unremarkable. IMPRESSION: 1. No acute fracture or subluxation. 2. Degenerative disease as described. 3. Mild widening of the posterior displaces at C2-C3 and C3-C4 which most likely due to positioning, cannot entirely exclude ligamentous injury depending on the type of trauma. If this represents a clinical concern, recommend follow-up with MRI of the neck. Electronically signed by: Tesha Lieberman MD 06/19/23 21:[address] 06/19/23 19:36 Exam(s): CT CHEST With Contrast IV Amt: 93ML OPTIRAY 320 EXAM: CT Chest With Intravenous Contrast CLINICAL HISTORY: Reason for exam: Trauma. TECHNIQUE: Axial computed tomography images of the chest with intravenous contrast. CTDI is 22.97 mGy and DLP is 649.84 mGy-cm. Automated exposure control was utilized for the study. A dose lowering technique was utilized adhering to the principles of ALARA. CONTRAST: Patient received 93ML OPTIRAY 320 of IV contrast COMPARISON: 03/30/2021. FINDINGS: Lungs: The lungs are underexpanded with vascular crowding. There is mild bilateral lower lobe atelectasis. Pleural space: Unremarkable. No pleural effusion or pneumothorax. Heart: Unremarkable. No cardiomegaly. No significant pericardial effusion. No significant coronary artery calcifications. Mediastinum: Minimal hiatal hernia. Bones/joints: Posterior fusion from lower thoracic spine to the lumbar spine. Abdominal structures are described in detail in the accompanying CT of the abdomen and pelvis report. No acute fracture. No dislocation. Soft tissues: Unremarkable. Vasculature: Unremarkable. Normal aorta aneurysm or dissection. Lymph nodes: Unremarkable. No enlarged lymph nodes. IMPRESSION: 1. Mild bilateral lower lobe atelectasis, otherwise no acute pulmonary disease. 2. No pleural effusion or pneumothorax. Electronically signed by: Tesha Lieberman MD 06/19/23 21:[address] 06/19/23 19:36 Exam(s): CT HEAD Without Contrast EXAM: CT Head Without Intravenous Contrast CLINICAL HISTORY: Reason for exam: Trauma. TECHNIQUE: Axial computed tomography images of the head/brain without intravenous contrast. CTDI is 37.69 mGy and DLP is 624.41 mGy-cm. Automated exposure control was utilized for the study. A dose lowering technique was utilized adhering to the principles of ALARA. COMPARISON: 06/25/2020. FINDINGS: Brain: Unremarkable. No hemorrhage. No significant white matter disease. No edema. Ventricles: Unremarkable. No ventriculomegaly. Bones/joints: Unremarkable. No acute fracture. Soft tissues: Unremarkable. Sinuses: Unremarkable as visualized. No acute sinusitis. Mastoid air cells: Unremarkable as visualized. No mastoid effusion. IMPRESSION: Normal CT brain for age. Electronically signed by: Tesha Lieberman MD 06/19/23 20:55 PM (1) Closed fracture of left tibia and fibula Encounter type: initial encounter Qualified Code(s): S82.202A - Unspecified fracture of shaft of left tibia, initial encounter for closed fracture; S82.402A - Unspecified fracture of shaft of left fibula, initial encounter for closed fr acture
--- NOTE | 2023-06-21 06:51 | Anesthesiology Consultation ---
Date of Service June 21, 2023 Assessment & Plan ASA ASA3 Proposed Anesthesia Anesthesia Type: General Risk / Benefits Reviewed With: PT / POA / Parent / Guardian, Accepts Plan and Informed Consent Obtained Additional Comments: pt had ativan and risperdone last night. somnolent. but responding appropriately. popliteal block is not doable because of cast History Surgery Operation Date: 06/21/23 07:00 Proposed Procedures p Left Distal Tibia Fracture Open Reduction Internal - Bob Haydee Haley MD Height/Weight Height: 5 ft 7 in Weight: 71.3 kg Allergies Allergy/AdvReac Type Severity Reaction Status Date / Time No Known Allergies Allergy Verified 06/19/23 20:22 Medications Home Medications Medication Instructions Recorded Confirmed Last Taken citalopram 20 mg tablet 20 mg PO DAILY #30 tabs 04/10/23 06/19/23 Unknown omeprazole 20 mg capsule,delayed 20 mg PO DAILY #30 caps 04/10/23 06/19/23 Unknown release Active Medications Generic Name Dose Route Start Last Admin Trade Name Freq PRN Reason Stop Dose Admin Acetaminophen 650 mg 06/20/23 01:30 06/20/23 12:59 Acetaminophen 325 Mg Tab PO 07/20/23 01:29 650 mg Q4H PRN Administration pain/fever Citalopram Hydrobromide 20 mg 06/20/23 09:00 06/20/23 09:24 Citalopram 20 Mg Tab PO 07/20/23 08:59 Not Given DAILY WENDY Hydromorphone HCl 0.25 mg 06/20/23 01:30 06/20/23 07:39 Hydromorphone Inj 0.5 Mg/0.5 Ml Syr IV 07/04/23 01:29 0.25 mg Q3H PRN Administration Moderate Pain (Scale 4, 5, 6) Hydromorphone HCl 0.5 mg 06/20/23 01:30 06/20/23 19:16 Hydromorphone Inj 0.5 Mg/0.5 Ml Syr IV 07/04/23 01:29 0.5 mg Q3H PRN Administration Severe Pain (Scale 7, 8, 9,10) Potassium Chloride/Sodium Chloride 20 meq in 1,000 mls @ 125 mls/hr 06/20/23 01:30 06/21/23 01:19 Normal Saline W/20 Meq Kcl IV 07/20/23 01:29 125 mls/hr .Q8H WENDY Administration Protocol Nicotine 7 mg 06/20/23 19:15 06/20/23 20:41 Nicotine 7 Mg/24 Hr Tdsy TD 07/20/23 19:14 7 mg QAM WENDY Administration Pantoprazole Sodium 40 mg 06/20/23 09:00 06/20/23 09:25 Pantoprazole 40 Mg Tab PO 07/20/23 08:59 Not Given DAILY WENDY NPO Date Last Intake of Fluids: 06/20/23 Time Last Intake of Fluids: 23:00 Date Last Intake of Solids: 06/20/23 Time Last Intake of Solids: 23:00 Past Medical History Medical History GERD (gastroesophageal reflux disease) Depression Seasonal affective disorder Cerebral palsy Seizure hx of during high fevers, no meds Exercise / Class Metabolic Activity II 4-5 Yardwork/Stairs/Walk up hill Past Surgical History Surgical History History of open reduction and internal fixation (ORIF) procedure left ankle--pins/rods in place History of back surgery [address] History of esophagogastroduodenoscopy (EGD) History of tooth extraction most of teeth removed Past Anesthesia History No Hx of Anesthesia Complications and No Family Hx of Anesthesia Complications History of PONV No Hx of PONV and No Hx of Motion Sickness Social History Smoking Status: Never smoker Do You Dip or Chew Tobacco: Yes Hx Alcohol Use: Yes Alcohol type: beer, wine and hard liquor alcohol intake frequency: a few times a month Hx Substance Use: No substance use type: does not use Review of Systems denies fever/cough/ colds/ chest pain/ SOB/ SUDHA denies SUDHA Physical Exam Vital Signs Last Vital Signs Temp 37.3 C 06/21/23 06:33 Pulse 70 06/21/23 06:33 Resp 16 06/21/23 06:33 BP 109/65 06/21/23 06:33 Pulse Ox 92 06/21/23 06:33 O2 Del Method Room Air 06/21/23 06:33 O2 Flow Rate 2 06/21/23 06:03 ENMT Mouth: + dentures; no TMJ abnormality and no dentition abnormality Thyromental Distance: > or= 3.5 Finger Breadths Mallampati Class: IV Neck neck extension not limited Respiratory normal respiratory effort; no respiratory distress Auscultation: lungs clear to auscultation bilaterally Cardiovascular Rate/Rhythm: regular rate and regular rhythm Neurologic moves all extremities Psychiatric Orientation: alert and oriented x 3 Testing Laboratory Results 06/20/23 06:54 06/20/23 06:54
[2023-06-21 07:08] LABS: Basophils # (auto) 0.06 K/uL (0.00-0.20); Eosinophils # (auto) 0.35 K/uL (0.00-0.50); Eosinophils % (auto) 5.6 %; Hematocrit (blood only) 37.3 % (42.0-52.0); Hemoglobin 12.3 g/dl (14.0-18.0); Immature Granulocytes # (auto) 0.01 K/uL (0.01-0.20); Immature Granulocytes % (auto) 0.2 %; Lymphocytes # (auto) 1.29 K/uL (1.20-3.40); Lymphocytes % (auto) 20.5 %; Mean Corpuscular Hemoglobin 29.8 pg (25.0-34.0); Mean Corpuscular Volume 90.3 fL (80.0-100.0); Mean Platelet Volume 11.5 fL (9.4-12.4); Monocytes # (auto) 0.64 K/uL (0.11-0.59); Monocytes % (auto) 10.2 %; Neutrophils # (auto) 3.93 K/uL (1.40-6.50); Neutrophils % (auto) 62.5 %; Platelet Count 185 K/uL (130-400); RDW Coefficient of Variation 12.4 % (11.5-14.5); Red Blood Count 4.13 M/uL (4.70-6.10); White Blood Count 6.28 K/ul (4.8-10.8)
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
[2023-06-21] MEDS ORDERED: ONDANSETRON INJ 2 MG/ML 2 ML VIAL ONE (07:28)
[2023-06-21] MEDS ORDERED: DEXAMETHASONE SOD INJ 4 MG/ML VIAL ONE (07:28)
[2023-06-21 07:49] LABS: Albumin Level 3.6 gm/dl (3.4-5.0); Calcium 8.4 mg/dl (8.6-10.3); Magnesium 1.8 mg/dl (1.7-2.4)
[2023-06-21 07:54] LABS: BUN Creatinine Ratio 10.4 (10-20); Creatinine Clr Calc Pharmacy 126.1 ml/min; Est GFR (African American) 131.7 ml/min; Est GFR (Non-African American) 113.6 ml/min
--- NOTE | 2023-06-21 10:04 | Post Operative Brief Note ---
Immediate Post Op Note v1 Date of Surgery June 21, 2023 Pre & Post Diagnosis Operation Date: 06/21/23 07:00 Pre-Op Diagnosis: LEFT TIB-FIB FRACTURE Post-Op Diagnosis: LEFT TIB-FIB FRACTURE I identified the patient and participated in the time-out.: Yes Procedure Operation Date: 06/21/23 07:00 Actual Procedures p Left Distal Tibia Fracture Open Reduction Internal(Left) - Bob Haley MD Surgeon Bob Haley MD Business Test Analyst A MD Natalie & GARY Bach PA-C Estimated Blood Loss 125 Findings Consistent with Post-Op Diagnosis Fluids 800 cc Anesthesia Type General Complications none
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
--- NOTE | 2023-06-21 10:22 | Operative Report ---
Post Operative Report Pre & Post Diagnosis Operation Date: 06/21/23 07:00 Pre-Op Diagnosis: LEFT TIB-FIB FRACTURE Post-Op Diagnosis: LEFT TIB-FIB FRACTURE I identified the patient and participated in the time-out.: Yes Procedure Operation Date: 06/21/23 07:00 Actual Procedures p Left Distal Tibia Fracture Open Reduction Internal(Left) - Bob Haley MD Surgeon Bob Haley MD School Psychometrist A MD Natalie & GARY Bach PA-C Estimated Blood Loss 125 Findings Consistent with Post-Op Diagnosis Same as postoperative diagnosis. Specimens None Description of Procedure Please see detailed operative note. I attest to the content of the Intraoperative Record and any orders documented therein. Any exceptions are noted below.
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
--- NOTE | 2023-06-21 10:26 | Fluoroscopy Report ---
FL tibia/fibula LT 2V CLINICAL HISTORY: LEFT DISTAL TIBIA FX ORIF COMPARISON STUDY: 06/19/2023. FLUOROSCOPY TIME: 32 seconds FLUOROSCOPY IMAGES: 6 Ka,r: 1.2 mGy FINDINGS: Status post internal fixation of the bimalleolar left ankle fracture with cortical plate an d screws. The heart appears intact. Alignment appears near-anatomic. The proximal left fibular fractu re is again noted. IMPRESSION: Fluoroscopic assistance as above. ACT 112: Negative or not required by law. Electronically signed by: Moe Campbell M.D. 06/21/2023 10:25 AM
[2023-06-21] MEDS ORDERED: MoRPHine SULFATE 2 MG/ML CARP IV PRN (10:30)
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
--- NOTE | 2023-06-21 11:39 | Anesthesiology Progress Note ---
Date of Service June 21, 2023 Anesthesia Post Procedure Vital Signs Vital Signs: Temp Pulse Pulse Resp BP BP Pulse Ox 06/21/23 11:15 37.1 C 79 16 113/63 96 06/21/23 11:05 78 20 108/55 L 98 06/21/23 10:55 90 20 124/79 92 06/21/23 10:45 78 18 118/90 97 06/21/23 10:35 100 H 17 124/74 96 06/21/23 10:25 36.8 C 92 H 18 128/70 94 06/21/23 06:33 37.3 C 70 16 109/65 92 06/21/23 06:03 37.2 C 52 L 18 110/73 100 06/21/23 04:23 37.8 C H 62 18 112/69 97 06/21/23 00:00 36.5 C 78 18 139/81 89 L 06/20/23 22:28 36.9 C 06/20/23 22:23 73 18 125/74 88 L 06/20/23 20:53 36.4 C L 77 20 133/66 93 06/20/23 20:00 36.6 C 66 20 112/65 90 06/20/23 19:20 06/20/23 19:14 36.5 C 63 20 128/78 92 O2 Del Method O2 Flow Rate 06/21/23 11:15 Nasal Cannula 2 06/21/23 11:05 Oxymask 2 06/21/23 10:55 Room Air 06/21/23 10:45 Oxymask 6 06/21/23 10:35 Oxymask 6 06/21/23 10:25 Oxymask 6 06/21/23 06:33 Room Air 06/21/23 06:03 Nasal Cannula 2 06/21/23 04:23 Nasal Cannula 2 06/21/23 00:00 Room Air 06/20/23 22:28 06/20/23 22:23 Room Air 06/20/23 20:53 Room Air 06/20/23 20:00 Room Air 06/20/23 19:20 Room Air 06/20/23 19:14 Room Air Pain Intensity Left Ankle: Pain Intensity: 10 Transfer of Care Handoff Completed per policy Notes Mental Status: alert / awake / arousable and participated in evaluation Patient Amnestic to Procedure: Yes Nausea / Vomiting: adequately controlled Pain: adequately controlled Airway Patency, RR, SpO2: stable & adequate BP & HR: stable & adequate Hydration State: stable & adequate Anesthetic Complications: no major complications apparent and Pt Satisfied with anesthetic care
[2023-06-21] MEDS ORDERED: LORazepam 1 MG TAB PO PRN (12:06)
[2023-06-21] MEDS: THIAMINE HCL 200 MG in SODIUM CHLORIDE 0.9% 50 ML IV SCH (12:15)
[2023-06-21] MEDS: FOLIC ACID 1 MG in SYRINGE 9.8 ML IV SCH (12:15)
[2023-06-21] MEDS: NICOTINE 7 MG/24 HR TDSY TD SCH (12:18)
[2023-06-21] MEDS: ACETAMINOPHEN 325 MG TAB PO PRN ×2 (13:55→20:10)
[2023-06-21] MEDS: PANTOprazole 40 MG TAB PO SCH (13:55)
[2023-06-21] MEDS: CITALOPRAM 20 MG TAB PO SCH (13:55)
[2023-06-21] MEDS: oxyCODONE HCL IR 5 MG TAB (IMMEDIATE RELEASE) PO PRN ×2 (13:56→20:10)
[2023-06-21] MEDS: ceFAZolin 2000MG 2,000 MG/15 ML SYR IV SCH (17:31)
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
[2023-06-21] MEDS: OLANZAPINE 2.5 MG TAB PO SCH (21:19)
[2023-06-21] MEDS: HYDROmorphone INJ 0.5 MG/0.5 ML SYR IV PRN (22:04)
[2023-06-22] MEDS: oxyCODONE HCL IR 5 MG TAB (IMMEDIATE RELEASE) PO PRN ×4 (00:13→14:07)
[2023-06-22] MEDS: ceFAZolin 2000MG 2,000 MG/15 ML SYR IV SCH (00:14)
[2023-06-22] MEDS: HYDROmorphone INJ 0.5 MG/0.5 ML SYR IV PRN ×5 (02:54→20:24)
[2023-06-22] MEDS: NSS + 20MEQ KCL 20 MEQ/1,000 ML BAG IV SCH ×2 (04:35→12:49)
[2023-06-22 07:02] LABS: Basophils # (auto) 0.02 K/uL (0.00-0.20); Basophils % (auto) 0.2 %; Eosinophils # (auto) 0.09 K/uL (0.00-0.50); Eosinophils % (auto) 1.1 %; Hematocrit (blood only) 32.2 % (42.0-52.0); Hemoglobin 10.7 g/dl (14.0-18.0); Immature Granulocytes # (auto) 0.03 K/uL (0.01-0.20); Immature Granulocytes % (auto) 0.4 %; Lymphocytes # (auto) 1.42 K/uL (1.20-3.40); Lymphocytes % (auto) 17.4 %; Mean Corpuscular Hgb Conc 33.2 g/dL (32.0-36.0); Mean Corpuscular Volume 90.2 fL (80.0-100.0); Mean Platelet Volume 11.4 fL (9.4-12.4); Monocytes # (auto) 0.84 K/uL (0.11-0.59); Monocytes % (auto) 10.3 %; Neutrophils # (auto) 5.77 K/uL (1.40-6.50); Neutrophils % (auto) 70.6 %; Platelet Count 202 K/uL (130-400); RDW Coefficient of Variation 12.4 % (11.5-14.5); RDW Standard Deviation 41.1 fL (36.4-46.3); Red Blood Count 3.57 M/uL (4.70-6.10); White Blood Count 8.17 K/ul (4.8-10.8)
[2023-06-22 07:48] LABS: Albumin Level 3.4 gm/dl (3.4-5.0); BUN Creatinine Ratio 14.1 (10-20); Est GFR (African American) 134.2 ml/min; Est GFR (Non-African American) 115.8 ml/min; Magnesium 1.8 mg/dl (1.7-2.4); Phosphorus 1.8 mg/dl (2.5-4.9); Potassium 3.9 mmol/L (3.5-5.1)
[2023-06-22] MEDS: ASPIRIN 81 MG ECTAB PO SCH ×2 (10:12→20:28)
[2023-06-22] MEDS: PANTOprazole 40 MG TAB PO SCH (10:12)
[2023-06-22] MEDS: THIAMINE HCL 200 MG in SODIUM CHLORIDE 0.9% 50 ML IV SCH (10:12)
[2023-06-22] MEDS: FOLIC ACID 1 MG in SYRINGE 9.8 ML IV SCH (10:12)
[2023-06-22] MEDS: NICOTINE 7 MG/24 HR TDSY TD SCH (10:13)
[2023-06-22] MEDS: CITALOPRAM 20 MG TAB PO SCH (10:13)
[2023-06-22] MEDS ORDERED: ERGOCALCIFEROL 50,000 UNITS 1250 MCG CAP PO ONE (10:24)
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
[2023-06-22] MEDS: POT PHOSPHATE MONOBASIC W/ SOD TAB PO SCH ×3 (14:07→20:28)
--- NOTE | 2023-06-22 14:29 | XRay Report ---
SINGLE VIEW CHEST CLINICAL HISTORY: Rales at the right lung base on physical examination. FINDINGS: An AP, portable, upright chest radiograph is compared to study dated 03/30/2021 and correlat ed with chest CT dated 06/19/2023. The cardiomediastinal silhouette is unremarkable. There is elevatio n of the right hemidiaphragm with right basilar consolidation. Atelectasis is noted at the left lung base. Question a small right pleural effusion. No pneumothorax is seen. The skeletal structures are o steopenic. The bony thorax is grossly intact. Spinal rods are seen at the thoracolumbar junction. IMPRESSION: 1. Right basilar consolidation could represent atelectasis versus pneumonia/aspiration pneumonitis. C linical correlation will be required and radiographic follow-up to resolution is recommended. 2. Question a small right pleural effusion ACT 112: Negative or not required by law. Electronically signed by: Berny Delcid M.D. 06/22/2023 2:28 PM
[2023-06-22] MEDS ORDERED: PIPERACILLIN/TAZOBACTAM 4.5 GM in DEXTROSE 5% MINI-B 100 ML IV ONE (18:00)
[2023-06-22] MEDS ORDERED: VANCOMYCIN CONSULT ACTIVE PRN (20:03)
[2023-06-22] MEDS: OLANZAPINE 2.5 MG TAB PO SCH (20:28)
[2023-06-22] MEDS ORDERED: VANCOMYCIN HCL 1,750 MG in SODIUM CHLORIDE 0.9% 500 ML IV ONE (20:30)
--- NOTE | 2023-06-22 20:39 | Pharmacy Report ---
Pharmacy PK ABX Note - Date of Service June 22, 2023 - Assessment and Plan Assessment 48 year old M receiving Zosyn/vancomycin for treatment of pneumonia. Pertinent microbiologic data includes: Positive MRSA Nasal Swab, blood cultures pending. Day # 1 of antimicrobial therapy. Plan Vancomycin * Loading dose: 1750 mg IV x 1 * Maintenance dose: 1000 mg IV every 8 hours * Regimen is predicted to achieve target AUC/LAMAR of 400-600 mg/L.hr * Trough level ordered for: 06/24/23 @ 1130 Pharmacy will continue to follow and will adjust dose/frequency as necessary. Thank you. Pharmacy has transitioned to AUC monitoring for vancomycin. AUC/LAMAR is the preferred PK/PD target and is associated with decreased risk of nephrotoxicity compared to traditional trough targets.
[2023-06-22] MEDS: ALBUTEROL HFA 8 GM INHALER INH SCH (21:49)
[2023-06-23] MEDS: PIPERACILLIN/TAZOBACTAM 4.5 GM in DEXTROSE 5% MINI-B 100 ML IV SCH ×4 (00:31→23:28)
[2023-06-23] MEDS: VANCOMYCIN HCL 1,000 MG in SODIUM CHLORIDE 0.9% 250 ML IV SCH ×3 (04:29→20:14)
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
[2023-06-23 06:44] LABS: Hematocrit (blood only) 34.2 % (42.0-52.0); Hemoglobin 11.3 g/dl (14.0-18.0); Mean Corpuscular Hemoglobin 29.9 pg (25.0-34.0); Mean Corpuscular Volume 90.5 fL (80.0-100.0); Mean Platelet Volume 10.9 fL (9.4-12.4); Platelet Count 195 K/uL (130-400); RDW Coefficient of Variation 12.6 % (11.5-14.5); RDW Standard Deviation 41.9 fL (36.4-46.3); Red Blood Count 3.78 M/uL (4.70-6.10); White Blood Count 7.98 K/ul (4.8-10.8)
[2023-06-23 06:57] LABS: BUN Creatinine Ratio 7.8 (10-20); Calcium 8.3 mg/dl (8.6-10.3); Est GFR (African American) 134.2 ml/min; Est GFR (Non-African American) 115.8 ml/min; Potassium 3.6 mmol/L (3.5-5.1)
[2023-06-23] MEDS: ALBUTEROL HFA 8 GM INHALER INH SCH ×4 (07:26→19:27)
[2023-06-23] MEDS: THIAMINE HCL 200 MG in SODIUM CHLORIDE 0.9% 50 ML IV SCH (09:03)
[2023-06-23] MEDS: CITALOPRAM 20 MG TAB PO SCH (09:07)
[2023-06-23] MEDS: PANTOprazole 40 MG TAB PO SCH (09:07)
[2023-06-23] MEDS: POT PHOSPHATE MONOBASIC W/ SOD TAB PO SCH ×4 (09:07→20:09)
[2023-06-23] MEDS: ASPIRIN 81 MG ECTAB PO SCH ×2 (09:07→20:08)
[2023-06-23] MEDS: NICOTINE 7 MG/24 HR TDSY TD SCH (09:08)
[2023-06-23] MEDS: FOLIC ACID 1 MG in SYRINGE 9.8 ML IV SCH (09:10)
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
[2023-06-23] MEDS: oxyCODONE HCL IR 5 MG TAB (IMMEDIATE RELEASE) PO PRN ×4 (11:01→23:27)
[2023-06-23] MEDS: POLYETHYLENE (MIRALAX) 17 GM PACK PO SCH (12:25)
[2023-06-23] MEDS: SENNA 8.6 MG TAB PO SCH (14:33)
[2023-06-23] MEDS: ACETAMINOPHEN 325 MG TAB PO PRN ×2 (17:50→23:27)
[2023-06-23] MEDS: OLANZAPINE 2.5 MG TAB PO SCH (20:08)
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
[2023-06-24] MEDS: oxyCODONE HCL IR 5 MG TAB (IMMEDIATE RELEASE) PO PRN ×6 (03:37→23:40)
[2023-06-24] MEDS: VANCOMYCIN HCL 1,000 MG in SODIUM CHLORIDE 0.9% 250 ML IV SCH ×3 (03:38→20:05)
[2023-06-24] MEDS: ALBUTEROL HFA 8 GM INHALER INH SCH ×2 (07:38→11:36)
--- NOTE | 2023-06-24 07:45 | Orthopedic Progress Note ---
Date of Service June 24, 2023 Assessment & Plan (1) Closed fracture of left tibia and fibula: Plan: POD # 3 s/p ORIF left distal tibia fracture, closed treatment of proximal fibula fracture, doing as well as expected. Dressings changed this morning, 06/24/23. Can be changed daily as needed, may discontinue Xeroform POD#7 Use Cam walker/boot when ambulating/transporting, and physical therapy. Toe touch weightbearing with the assistance of his walker in the boot. Discharge planning for rehab Ice with easy wrap Orthopedically stable for discharge, will check in on patient on Monday if still in-house, please contact if any other ortho issues. DVT prophylaxis with TEDS and Aspirin 81 mg BID x 6 weeks Follow-up at [facility] orthopedics with Audra Venegas in 2 weeks (07/05/23 @ 10:30 AM) Continue care per primary service. Admission and Anticipated Discharge Date Admission Date: June 20, 2023 Subjective Doing alright, no complaints Physical Exam Physical Exam: LLE: Incision clean, dry, intact, minimall old dried blood on dressing and very small amount serous drainage from most distal aspect of the incision. Sensation to light touch intact. Able to wiggle all toes, foot up and down. BCR < 2 sec, 2 + DP pulse. Abrasion over patella scabbed over, no evidence of infection. Bruise present over medial distal thigh unchanged in size, non-tender. Results & Data Vital Signs (Past 12 Hours) Vital Signs Temp Pulse Resp BP BP Pulse Ox O2 Del Method 06/24/23 07:19 36.8 C 59 L 16 102/62 92 Room Air 06/23/23 21:36 36.8 C 95 H 16 118/71 94 Room Air (1) Closed fracture of left tibia and fibula Encounter type: initial encounter Qualified Code(s): S82.202A - Unspecified fracture of shaft of left tibia, initial encounter for closed fracture; S82.402A - Unspecified fracture of shaft of left fibula, initial encounter for closed fracture
[2023-06-24] MEDS: SENNA 8.6 MG TAB PO SCH (08:45)
[2023-06-24] MEDS: FOLIC ACID 1 MG in SYRINGE 9.8 ML IV SCH (08:45)
[2023-06-24] MEDS: NICOTINE 7 MG/24 HR TDSY TD SCH (08:45)
[2023-06-24] MEDS: POT PHOSPHATE MONOBASIC W/ SOD TAB PO SCH ×4 (08:45→19:43)
[2023-06-24] MEDS: POLYETHYLENE (MIRALAX) 17 GM PACK PO SCH (08:45)
[2023-06-24] MEDS: ASPIRIN 81 MG ECTAB PO SCH ×2 (08:46→19:43)
[2023-06-24] MEDS: CITALOPRAM 20 MG TAB PO SCH (08:46)
[2023-06-24] MEDS: PANTOprazole 40 MG TAB PO SCH (08:46)
[2023-06-24] MEDS: THIAMINE HCL 200 MG in SODIUM CHLORIDE 0.9% 50 ML IV SCH (08:46)
[2023-06-24] MEDS: PIPERACILLIN/TAZOBACTAM 4.5 GM in DEXTROSE 5% MINI-B 100 ML IV SCH ×3 (09:17→23:41)
[2023-06-24] MEDS ORDERED: bisacodyL 10 MG SUPP PR STA (09:30)
[2023-06-24] MEDS ORDERED: VANCOMYCIN LEVEL ONE (11:00)
[2023-06-24 11:37] LABS: Hematocrit (blood only) 34.9 % (42.0-52.0); Hemoglobin 11.4 g/dl (14.0-18.0)
[2023-06-24 11:40] LABS: BUN Creatinine Ratio 10.1 (10-20); Creatinine Clr Calc Pharmacy 122.4 ml/min; Est GFR (African American) 130.1 ml/min; Est GFR (Non-African American) 112.3 ml/min; Phosphorus 2.8 mg/dl (2.5-4.9); Potassium 3.7 mmol/L (3.5-5.1)
[2023-06-24] MEDS ORDERED: ALBUTEROL HFA 8 GM INHALER INH PRN (11:50)
--- NOTE | 2023-06-24 13:14 | Pharmacy Report ---
Pharmacy PK ABX Note - Date of Service June 24, 2023 - Assessment and Plan Assessment 48 year old M receiving Zosyn/vancomycin for treatment of pneumonia. Pertinent microbiologic data includes: Positive MRSA Nasal Swab, blood cultures NGTD SCr stable Level of 10.9 mcg/mL today associated with therapeutic AUC of 490 Possibly higher risk of nephrotoxicity with Zosyn/vanco combo, therefore will order ongoing SCr daily plus earlier repeat trough in ~48 hours Plan Vancomycin * Continue 1000 mg IV every 8 hours * Regimen is predicted to achieve target AUC/LAMAR of 400-600 mg/L.hr * Trough level ordered for: 06/26/23 @ 0330 Pharmacy will continue to follow and will adjust dose/frequency as necessary. Thank you. Pharmacy has transitioned to AUC monitoring for vancomycin. AUC/LAMAR is the preferred PK/PD target and is associated with decreased risk of nephrotoxicity compared to traditional trough targets.
[2023-06-24] MEDS: ACETAMINOPHEN 325 MG TAB PO PRN ×2 (19:42→23:41)
[2023-06-24] MEDS: OLANZAPINE 2.5 MG TAB PO SCH (19:43)
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
[2023-06-24] MEDS: MELATONIN 3 MG TAB PO PRN (22:38)
[2023-06-25] MEDS: oxyCODONE HCL IR 5 MG TAB (IMMEDIATE RELEASE) PO PRN ×2 (03:41→21:37)
[2023-06-25] MEDS: VANCOMYCIN HCL 1,000 MG in SODIUM CHLORIDE 0.9% 250 ML IV SCH (03:41)
[2023-06-25 06:44] LABS: Creatinine Clr Calc Pharmacy 126.1 ml/min; Est GFR (African American) 131.7 ml/min; Est GFR (Non-African American) 113.6 ml/min
[2023-06-25] MEDS: PANTOprazole 40 MG TAB PO SCH (08:52)
[2023-06-25] MEDS: POLYETHYLENE (MIRALAX) 17 GM PACK PO SCH (08:52)
[2023-06-25] MEDS: SENNA 8.6 MG TAB PO SCH (08:52)
[2023-06-25] MEDS: FOLIC ACID 1 MG TAB PO SCH (08:53)
[2023-06-25] MEDS: THIAMINE HCL 100 MG TAB PO SCH ×2 (08:53→20:29)
[2023-06-25] MEDS: ASPIRIN 81 MG ECTAB PO SCH ×2 (08:53→20:29)
[2023-06-25] MEDS: ACETAMINOPHEN 325 MG TAB PO PRN ×2 (09:56→19:19)
[2023-06-25] MEDS: NICOTINE 7 MG/24 HR TDSY TD SCH (10:40)
[2023-06-25] MEDS: levoFLOXacin 750 MG TAB PO SCH (11:28)
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
[2023-06-25] MEDS: OLANZAPINE 2.5 MG TAB PO SCH (20:28)
[2023-06-25] MEDS: LINEZOLID 600 MG TAB PO SCH (20:29)
[2023-06-25] MEDS: MELATONIN 3 MG TAB PO PRN (20:31)
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
[2023-06-26] MEDS ORDERED: VANCOMYCIN LEVEL ONE (03:30)
[2023-06-26] MEDS: ACETAMINOPHEN 325 MG TAB PO PRN ×4 (04:43→20:36)
[2023-06-26 06:45] LABS: Est GFR (African American) 128.6 ml/min
[2023-06-26] MEDS: FOLIC ACID 1 MG TAB PO SCH (08:28)
[2023-06-26] MEDS: ASPIRIN 81 MG ECTAB PO SCH ×2 (08:28→20:36)
[2023-06-26] MEDS: LINEZOLID 600 MG TAB PO SCH ×2 (08:29→20:36)
[2023-06-26] MEDS: PANTOprazole 40 MG TAB PO SCH (08:29)
[2023-06-26] MEDS: SENNA 8.6 MG TAB PO SCH (08:29)
[2023-06-26] MEDS: THIAMINE HCL 100 MG TAB PO SCH ×2 (08:30→20:36)
[2023-06-26] MEDS: POLYETHYLENE (MIRALAX) 17 GM PACK PO SCH ×2 (08:31→08:33)
[2023-06-26] MEDS: NICOTINE 7 MG/24 HR TDSY TD SCH ×2 (08:32→08:35)
[2023-06-26] MEDS: levoFLOXacin 750 MG TAB PO SCH (10:24)
[2023-06-26 10:25] LABS: BUN Creatinine Ratio 15.5 (10-20); Calcium 9.1 mg/dl (8.6-10.3); Potassium 3.7 mmol/L (3.5-5.1)
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
[2023-06-26] MEDS ORDERED: OLANZAPINE 2.5 MG TAB PO STA (13:32)
[2023-06-26] MEDS: MELATONIN 3 MG TAB PO PRN (20:36)
[2023-06-26] MEDS: OLANZAPINE 2.5 MG TAB PO SCH (20:36)
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
[2023-06-27 07:09] LABS: Creatinine Clr Calc Pharmacy 108.3 ml/min; Est GFR (African American) 123.7 ml/min; Est GFR (Non-African American) 106.7 ml/min
[2023-06-27] MEDS: SENNA 8.6 MG TAB PO SCH (07:42)
[2023-06-27] MEDS: PANTOprazole 40 MG TAB PO SCH (07:43)
[2023-06-27] MEDS: ASPIRIN 81 MG ECTAB PO SCH ×2 (07:43→22:03)
[2023-06-27] MEDS: FOLIC ACID 1 MG TAB PO SCH (07:43)
[2023-06-27] MEDS: OLANZAPINE 2.5 MG TAB PO SCH ×2 (07:43→22:04)
[2023-06-27] MEDS: LINEZOLID 600 MG TAB PO SCH ×2 (07:43→22:04)
[2023-06-27] MEDS: NICOTINE 7 MG/24 HR TDSY TD SCH (07:44)
[2023-06-27] MEDS: THIAMINE HCL 100 MG TAB PO SCH ×2 (07:44→22:04)
[2023-06-27] MEDS: POLYETHYLENE (MIRALAX) 17 GM PACK PO SCH (07:44)
--- NOTE | 2023-06-27 08:59 | Electrocardiogram Report ---
Test Reason : Blood Pressure : / mmHG Vent. Rate : 077 BPM Atrial Rate : 077 BPM P-R Int : 138 ms QRS Dur : 088 ms QT Int : 384 ms P-R-T Axes : 047 008 006 degrees QTc Int : 434 ms Normal sinus rhythm Normal ECG When compared with ECG of 30-MAR-2021 03:39, No significant change Confirmed by John Salcedo ([id number]) on 06/27/2023 8:58:37 AM Referred By: REFERRED SELF Confirmed By:John Salcedo
--- NOTE | 2023-06-27 10:16 | Orthopedic Progress Note ---
Date of Service June 27, 2023 Assessment & Plan (1) Closed fracture of left tibia and fibula: Plan: POD # 6 s/p ORIF left distal tibia fracture, closed treatment of proximal fibula fracture, doing as well as expected. Dressing was clean, dry, intact and left in place Use Cam walker/boot when ambulating/transporting, and physical therapy. Toe touch weightbearing with the assistance of his walker in the boot. Case management will assist with providing in home PT for first 2 weeks after discharge. Patient's mother is comfortable with him being discharged home after having his psych meds adjusted. Ice with easy wrap Orthopedically stable for discharge DVT prophylaxis with TEDS and Aspirin 81 mg BID x 6 weeks Follow-up at [facility] orth[facility] with Audra Venegas, 2 weeks Postop (07/05/23 @ 10:30 AM) Pt may shower keeping incision/dressing clean and dry, may utilize shower bag cover Continue care per primary service. Admission and Anticipated Discharge Date Admission Date: June 20, 2023 Supervising Physician Co-Signing Physician Notes I, Dr. Haley, saw and examined the patient and discussed the management with my PA. I reviewed my PAs note and agree with the documented findings and the plan of care I developed. Subjective This 48-year-old male is 6 days status post left ankle open reduction internal fixation for distal tibia fracture. Patient states his pain is well controlled with the p.o. pain medication. He is currently sitting in the bedside chair watching television, eating breakfast with his cam walker boot in place. Patient states that he has been able to do physical and Occupational Therapy. Patient states that he does not want to go to a rehab facility because he went to [facility] after his previous left ankle fracture and states that they did nothing for him. He prefers to go home and do in-home physical therapy for at least the first 2 weeks before transitioning to outpatient. He currently lives with his mother. Patient denies chest pain, shortness of breath, fever, chills, sweats or numbness or tingling in his left lower extremity. He is very pleasant this morning. Review of Systems Review of Systems: All systems reviewed & are unremarkable except as noted in Subjective Physical Exam Physical Exam: Left lower extremity: Dressing is clean dry and intact and left in place. Patient is able to fully flex and extend his knee. He is able to resist passive flexion and extension at the IP joint of his great toe. Patient is able to detect light sensation to touch over the pads of all digits. He is able to perform an active straight leg raise test. He is neurovascular intact in left lower extremity. Results & Data Vital Signs (Past 12 Hours) Vital Signs Temp Pulse Resp BP Pulse Ox O2 Del Method 06/27/23 07:04 36.9 C 64 18 102/65 95 Room Air Diagnostic Findings Laboratory Results WBC 7.98 K/ul (4.8-10.8) 06/23/23 05:56 RBC 3.78 M/uL (4.70-6.10) L 06/23/23 05:56 Hgb 11.4 g/dl (14.0-18.0) L 06/24/23 11:12 Hct 34.9 % (42.0-52.0) L 06/24/23 11:12 MCV 90.5 fL (80.0-100.0) 06/23/23 05:56 MCH 29.9 pg (25.0-34.0) 06/23/23 05:56 MCHC 33.0 g/dL (32.0-36.0) 06/23/23 05:56 RDW Std Deviation 41.9 fL (36.4-46.3) 06/23/23 05:56 RDW Coeff of Belén 12.6 % (11.5-14.5) 06/23/23 05:56 Plt Count 195 K/uL (130-400) 06/23/23 05:56 MPV 10.9 fL (9.4-12.4) 06/23/23 05:56 Immature Gran % (Auto) 0.4 % 06/22/23 06:02 Neut % (Auto) 70.6 % 06/22/23 06:02 Lymph % (Auto) 17.4 % 06/22/23 06:02 [place] % (Auto) 10.3 % 06/22/23 06:02 Eos % (Auto) 1.1 % 06/22/23 06:02 Baso % (Auto) 0.2 % 06/22/23 06:02 Neut # (Auto) 5.77 K/uL (1.40-6.50) 06/22/23 06:02 Lymph # (Auto) 1.42 K/uL (1.20-3.40) 06/22/23 06:02 [place] # (Auto) 0.84 K/uL (0.11-0.59) H 06/22/23 06:02 Eos # (Auto) 0.09 K/uL (0.00-0.50) 06/22/23 06:02 Baso # (Auto) 0.02 K/uL (0.00-0.20) 06/22/23 06:02 Immature Gran # (Auto) 0.03 K/uL (0.01-0.20) 06/22/23 06:02 Sodium 138 mmol/L (136-145) 06/26/23 05:54 Potassium 3.7 mmol/L (3.5-5.1) 06/26/23 05:54 Chloride 102 mmol/L (98-107) 06/26/23 05:54 Carbon Dioxide 27 mmol/L (21-32) 06/26/23 05:54 Anion Gap 9 (3-11) 06/26/23 05:54 BUN 11 mg/dl (6-23) 06/26/23 05:54 Creatinine 0.78 mg/dl (0.6-1.4) 06/27/23 06:14 Est Cr Clr Drug Dosing 108.3 ml/min 06/27/23 06:14 Est GFR ( Amer) 123.7 ml/min 06/27/23 06:14 Est GFR (Non-Af Amer) 106.7 ml/min 06/27/23 06:14 BUN/Creatinine Ratio 15.5 (10-20) 06/26/23 05:54 Glucose 104 mg/dl (70-99(Fasting)) H 06/26/23 05:54 Calcium 9.1 mg/dl (8.6-10.3) 06/26/23 05:54 Phosphorus 2.8 mg/dl (2.5-4.9) 06/24/23 11:12 Magnesium 1.8 mg/dl (1.7-2.4) 06/22/23 06:02 Total Bilirubin 0.3 mg/dl (0.2-1.0) 06/19/23 19:30 AST 16 U/L (13-39) 06/19/23 19:30 ALT 16 U/L (7-52) 06/19/23 19:30 Alkaline Phosphatase 86 U/L (34-104) 06/19/23 19:30 Total Creatine Kinase 531 U/L (30-223) H 06/22/23 06:02 Total Protein 7.7 gm/dl (6.0-8.3) 06/19/23 19:30 Albumin 3.4 gm/dl (3.4-5.0) 06/22/23 06:02 Globulin 3.2 gm/dl (2.5-4.0) 06/19/23 19:30 Albumin/Globulin Ratio 1.4 (0.9-2) 06/19/23 19:30 25-OH Vitamin D Total 18.6 ng/ml (30-100) L 06/22/23 06:02 Nasal Screen MRSA (PCR) Positive (Negative) A 06/22/23 18:00 Random Vancomycin 10.9 mcg/ml (10-20) 06/24/23 11:12 SARS-CoV-2, RNA, NAAT NEGATIVE (NEGATIVE) 06/21/23 12:25 Impressions Abdomen/Pelvis CT 06/19/23 19:36 Exam(s): CT ABDOMEN + PELVIS With Contrast IV Amt: 93ML OPTIRAY 320 EXAM: CT Abdomen and Pelvis With Intravenous Contrast CLINICAL HISTORY: Reason for exam: Trauma. TECHNIQUE: Axial computed tomography images of the abdomen and pelvis with intravenous contrast. CTDI is 23.57 mGy and DLP is 1291.35 mGy-cm. Automated exposure control was utilized for the study. A dose lowering technique was utilized adhering to the principles of ALARA. CONTRAST: Patient received 93ML OPTIRAY 320 of IV contrast COMPARISON: 03/24/2021. FINDINGS: Lung bases: Mild bilateral lower lobe atelectasis. Heart: Unremarkable. No significant pericardial effusion. Normal cardiac size. Mediastinum: Minimal hiatal hernia. ABDOMEN: Liver: Unremarkable. No mass. Gallbladder and bile ducts: Unremarkable. No calcified stones. No ductal dilation. Pancreas: Unremarkable. No mass. No ductal dilation. Spleen: Unremarkable. No splenomegaly. Adrenals: Unremarkable. No mass. Kidneys and ureters: Unremarkable. No solid mass. No hydronephrosis. Stomach and bowel: Unremarkable. No obstruction. No mucosal thickening. PELVIS: Appendix: Normal appendix. Bladder: Urinary bladder is incompletely distended. Reproductive: Unremarkable as visualized. ABDOMEN and PELVIS: Intraperitoneal space: Unremarkable. No free air. No significant fluid collection. Bones/joints: Posterior fusion from T11-L2. No acute fracture. No dislocation. Soft tissues: Unremarkable. Vasculature: Unremarkable. No abdominal aortic aneurysm. Lymph nodes: Unremarkable. No enlarged lymph nodes. IMPRESSION: No evidence of visceral or intra-abdominal injury. Electronically signed by: Tesha Lieberman MD 06/19/23 21:[address] 06/19/23 19:36 Exam(s): CT C SPINE EXAM: CT Cervical Spine Without Intravenous Contrast CLINICAL HISTORY: Reason for exam: Trauma. TECHNIQUE: Axial computed tomography images of the cervical spine without intravenous contrast. CTDI is 24.47 mGy and DLP is 529.43 mGy-cm. Automated exposure control was utilized for the study. A dose lowering technique was utilized adhering to the principles of ALARA. COMPARISON: None. FINDINGS: Vertebrae: Degenerative arthrosis at anterior C1-C2 articulation, otherwise normal odontoid process. Multilevel endplate spondylosis with narrowing of disc height consistent with disc degenerative disease. Reversal of the cervical lordosis which may be due to muscular spasm, positioning or degenerative disease. There is mild widening posterior displaces at C2-C3 and C3-C4, likely due to positioning. Cannot entirely exclude ligamentous injury. No acute fracture. Discs/spinal canal/neural foramina: Multilevel bilateral apophyseal hypertrophy contributing to variable degrees of neuroforaminal encroachment. No central canal stenosis. Soft tissues: Unremarkable. IMPRESSION: 1. No acute fracture or subluxation. 2. Degenerative disease as described. 3. Mild widening of the posterior displaces at C2-C3 and C3-C4 which most likely due to positioning, cannot entirely exclude ligamentous injury depending on the type of trauma. If this represents a clinical concern, recommend follow-up with MRI of the neck. Electronically signed by: Tesha Lieberman MD 06/19/23 21:[address] 06/19/23 19:36 Exam(s): CT CHEST With Contrast IV Amt: 93ML OPTIRAY 320 EXAM: CT Chest With Intravenous Contrast CLINICAL HISTORY: Reason for exam: Trauma. TECHNIQUE: Axial computed tomography images of the chest with intravenous contrast. CTDI is 22.97 mGy and DLP is 649.84 mGy-cm. Automated exposure control was utilized for the study. A dose lowering technique was utilized adhering to the principles of ALARA. CONTRAST: Patient received 93ML OPTIRAY 320 of IV contrast COMPARISON: 03/30/2021. FINDINGS: Lungs: The lungs are underexpanded with vascular crowding. There is mild bilateral lower lobe atelectasis. Pleural space: Unremarkable. No pleural effusion or pneumothorax. Heart: Unremarkable. No cardiomegaly. No significant pericardial effusion. No significant coronary artery calcifications. Mediastinum: Minimal hiatal hernia. Bones/joints: Posterior fusion from lower thoracic spine to the lumbar spine. Abdominal structures are described in detail in the accompanying CT of the abdomen and pelvis report. No acute fracture. No dislocation. Soft tissues: Unremarkable. Vasculature: Unremarkable. Normal aorta aneurysm or dissection. Lymph nodes: Unremarkable. No enlarged lymph nodes. IMPRESSION: 1. Mild bilateral lower lobe atelectasis, otherwise no acute pulmonary disease. 2. No pleural effusion or pneumothorax. Electronically signed by: Tesha Lieberman MD 06/19/23 21:[address] 06/19/23 19:36 Exam(s): CT HEAD Without Contrast EXAM: CT Head Without Intravenous Contrast CLINICAL HISTORY: Reason for exam: Trauma. TECHNIQUE: Axial computed tomography images of the head/brain without intravenous contrast. CTDI is 37.69 mGy and DLP is 624.41 mGy-cm. Automated exposure control was utilized for the study. A dose lowering technique was utilized adhering to the principles of ALARA. COMPARISON: 06/25/2020. FINDINGS: Brain: Unremarkable. No hemorrhage. No significant white matter disease. No edema. Ventricles: Unremarkable. No ventriculomegaly. Bones/joints: Unremarkable. No acute fracture. Soft tissues: Unremarkable. Sinuses: Unremarkable as visualized. No acute sinusitis. Mastoid air cells: Unremarkable as visualized. No mastoid effusion. IMPRESSION: Normal CT brain for age. Electronically signed by: Tesha Lieberman MD 06/19/23 20:55 PM Chest X-Ray 06/22/23 12:45 SINGLE VIEW CHEST CLINICAL HISTORY: Rales at the right lung base on physical examination. FINDINGS: An AP, portable, upright chest radiograph is compared to study dated 03/30/2021 and correlated with chest CT dated 06/19/2023. The cardiomediastinal silhouette is unremarkable. There is elevation of the right hemidiaphragm with right basilar consolidation. Atelectasis is noted at the left lung base. Question a small right pleural effusion. No pneumothorax is seen. The skeletal structures are osteopenic. The bony thorax is grossly intact. Spinal rods are seen at the thoracolumbar junction. IMPRESSION: 1. Right basilar consolidation could represent atelectasis versus pneumonia/aspiration pneumonitis. Clinical correlation will be required and radiographic follow-up to resolution is recommended. 2. Question a small right pleural effusion ACT 112: Negative or not required by law. Electronically signed by: Breny Delcid M.D. 06/22/2023 2:28 PM Tibia/Fibula X-Ray 06/25/23 16:46 XR tibia fibula LT 2V CLINICAL HISTORY: Fx's s/p ORIF; possible injury; assess hardware COMPARISON STUDY: Left lower leg 06/21/2023. FINDINGS: There are skin christiano within the distal left lower leg. Status post internal fixation of the distal left tibial and fibular fractures with lateral cortical plate and screws. The hardware appears intact. Alignment appears near-anatomic. There are 2 screws within the medial malleolus which appear in good position. Soft tissue swelling within the distal left lower leg. Slightly displaced fracture at the fibular neck is also unchanged. IMPRESSION: 1. Internal fixation of the distal left tibial and fibular fractures again noted. The hardware appears intact. The alignment is unchanged. 2. No change in the slightly displaced left fibular neck fracture. ACT 112: Negative or not required by law. Electronically signed by: Moe Campbell M.D. 06/25/2023 6:28 PM (1) Closed fracture of left tibia and fibula Encounter type: initial encounter Qualified Code(s): S82.202A - Unspecified fracture of shaft of left tibia, initial encounter for closed fracture; S82.402A - Unspecified fracture of shaft of left fibula, initial encounter for closed fracture
[2023-06-27] MEDS: ACETAMINOPHEN 325 MG TAB PO PRN (10:51)
[2023-06-27] MEDS: levoFLOXacin 750 MG TAB PO SCH (10:51)
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
[2023-06-27] MEDS: MELATONIN 3 MG TAB PO PRN (23:48)
[2023-06-28] MEDS: FOLIC ACID 1 MG TAB PO SCH (08:52)
[2023-06-28] MEDS: PANTOprazole 40 MG TAB PO SCH (08:52)
[2023-06-28] MEDS: LINEZOLID 600 MG TAB PO SCH (08:52)
[2023-06-28] MEDS: OLANZAPINE 2.5 MG TAB PO SCH (08:52)
[2023-06-28] MEDS: SENNA 8.6 MG TAB PO SCH (08:52)
[2023-06-28] MEDS: THIAMINE HCL 100 MG TAB PO SCH (08:52)
[2023-06-28] MEDS: ASPIRIN 81 MG ECTAB PO SCH (08:52)
[2023-06-28] MEDS: POLYETHYLENE (MIRALAX) 17 GM PACK PO SCH (08:53)
[2023-06-28] MEDS: NICOTINE 7 MG/24 HR TDSY TD SCH (08:53)
--- NOTE | 2023-06-28 10:01 | Orthopedic Progress Note ---
Date of Service June 28, 2023 Assessment & Plan (1) Closed fracture of left tibia and fibula: Plan: POD # 7 s/p ORIF left distal tibia fracture, closed treatment of proximal fibula fracture, doing as well as expected. Dressing was clean, dry, intact and left in place. Nursing/home health may change as needed. Use Cam walker/boot when ambulating/transporting, and physical therapy. Toe touch weightbearing with the assistance of his walker in the boot. Case management will assist with providing in home PT for first 2 weeks after discharge. Patient's mother is comfortable with him being discharged home after having his psych meds adjusted. Ice with easy wrap Orthopedically stable for discharge DVT prophylaxis with TEDS and Aspirin 81 mg BID x 6 weeks Follow-up at [facility] orthopedics with Audra Venegas, 2 weeks Postop (07/05/23 @ 10:30 AM) Pt may shower keeping incision/dressing clean and dry, may utilize shower bag cover Plan discussed with Dr. Haley. Admission and Anticipated Discharge Date Admission Date: June 20, 2023 Subjective Patient seen and examined at chair side. He reports he is doing well today and is not having any pain. He wants to go home. He says he was told everything was approved and he is waiting on a walker. He has been working well with physical therapy. Physical Exam Physical Exam: Patient's dressing is intact and not saturated. He is able to wiggle his toes. He is able to slightly push down against resistance and pull his toes up against some light resistance. Calf is supple. He has sensation intact distally to light touch. His cam boot is fitting appropriately. Results & Data Vital Signs (Past 12 Hours) Vital Signs Temp Pulse Resp BP BP Pulse Ox O2 Del Method 06/28/23 07:45 36.7 C 65 16 103/61 94 Room Air 06/27/23 22:08 36.9 C 82 20 125/83 97 Room Air (1) Closed fracture of left tibia and fibula Encounter type: initial encounter Qualified Code(s): S82.202A - Unspecified fracture of shaft of left tibia, initial encounter for closed fracture; S82.402A - Unspecified fracture of shaft of left fibula, initial encounter for closed fracture
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
== END 2023-06-28 15:01 | disposition home health service (06) | DRG 492 ==
LOC: ED 18:53 → EDINP 06-20 00:51 → SUATTDRO 06-20 00:51 → 3E 06-20 01:29